=== PATIENT | female | born 1950 | race African-American/Black ===

== ENCOUNTER 2024-08-30 12:30 | Inpatient (IN) | payer MEDICARE, MEDICAID ==
[~2024-08-30] VITALS: Ht 157.5 cm; Wt 79.8 kg
[2024-08-30 13:08] LABS: Urine Bacteria None Seen /hpf (None Seen)
[2024-08-30 13:25] LABS: Urine Blood 3+ /uL (Negative); Urine Clarity Turbid (Clear); Urine Color Yellow (Yellow); Urine Hyaline Cast FEW /lpf (0 - 2); Urine Mucus FEW (None Seen); Urine Protein, UAD 1+ (Negative); Urine Specific Gravity 1.023 (1.001-1.035); Urine Urobilinogen 12 mg/dL (Negative); Urine WBC 76 /hpf (0 - 5)
[2024-08-30 13:52] LABS: Basophils # (auto) 0.1 10 ^3/uL (0-0.2); Neutrophils # (auto) 8.6 10 ^3/uL (1.6-8.6); White Blood Cell 11.2 10^3/uL (4.4-10.8)
[2024-08-30 13:53] LABS: Basophils % (auto) 0.6 % (0.0-2.0); Eosinophils # (auto) 0.1 10 ^3/uL (0-0.8); Eosinophils % (auto) 0.6 % (0.0-7.0); Hematocrit 21.2 % (36.0-46.0); Lymphocytes # (auto) 1.4 10 ^3/uL (0.4-5.4); Lymphocytes % (auto) 12.7 % (10.0-50.0); Mean Corpuscular Hemoglobin 22.9 pg (28.0-32.0); Mean Corpuscular Hgb Conc. 30.2 g/dL (32.0-36.0); Mean Corpuscular Volume 75.7 fL (80.0-100.0); Monocytes # (auto) 1.1 10 ^3/uL (0-1.3); Monocytes % (auto) 9.7 % (0.0-12.0); Neutrophils % (auto) 76.4 % (37.0-80.0); Platelet Count (auto) 659 10^3/uL (140-450); Red Cell Distribution Width 21.1 % (11.8-14.3)
[2024-08-30 13:56] LABS: Hemoglobin 6.4 g/dL (12.2-16.2)
[2024-08-30 14:00] LABS: Chloride 105 mmol/L (98-107); Potassium 3.7 mmol/L (3.5-5.1); Sodium 137 mmol/L (136-145)
[2024-08-30 14:01] LABS: Anion Gap 9 (5-15); Carbon Dioxide 23 mmol/L (20-31)
[2024-08-30 14:06] LABS: BUN/Creatinine Ratio 11.3 (10.0-20.0); Blood Urea Nitrogen 13 mg/dL (9-23); Glucose 170 mg/dL (74-106)
[2024-08-30 14:13] LABS: INR 1.25 (0.9-1.15)
[2024-08-30] MEDS: SODIUM CHLORIDE 0.9% 1,000 ML IV ONE (16:07)
[2024-08-30] MEDS: cefTRIAXone 1GM/50ML D5W 50 ML IV ONE (16:07)
[2024-08-30] MEDS ORDERED: DOCUSATE SOD 100 MG CAP PO PRN (17:00)
[2024-08-30] MEDS ORDERED: HYDROcodone-ACET 5/325MG TAB PO PRN (17:00)
[2024-08-30] MEDS: SODIUM CHLORIDE 0.9% 1,000 ML IV SCH (17:00)
[2024-08-30] MEDS ORDERED: ONDANSETRON HCL 4 MG/2 ML VIAL IV PRN (17:00)
[2024-08-30] MEDS ORDERED: NITROGLYCERIN 0.4 MG SL TAB SL PRN (21:15)
[2024-08-30] MEDS ORDERED: MORPHINE SULFATE INJ 2 MG/ml SYRG IV PRN (21:15)
[2024-08-30 22:15] VITALS: PULSE 86; RESP 18; O2SAT 98
[2024-08-31] VITALS (9 sets, daily range): BP systolic 128–174; BP diastolic 57–71; PULSE 77–96; RESP 16–22; TEMP 98–100.4; O2SAT 96–98
[2024-08-31] MEDS ORDERED: ATEN100T PO (00:59)
[2024-08-31] MEDS ORDERED: ATE50T PO (01:00)
[2024-08-31] MEDS ORDERED: HYDR12.59 PO (01:02)
[2024-08-31] MEDS ORDERED: ATOR40TA52 PO (01:02)
[2024-08-31] MEDS ORDERED: ASPI1TAB20 PO (01:02)
[2024-08-31] MEDS ORDERED: POTA-36 PO (01:03)
[2024-08-31] MEDS ORDERED: IBUP1TAB5 PO (01:04)
[2024-08-31] MEDS ORDERED: FELO10TA28 PO (01:05)
[2024-08-31] MEDS ORDERED: FERR1TAB31 PO (01:12)
[2024-08-31] MEDS ORDERED: ASCO500T11 PO (01:13)
[2024-08-31] MEDS ORDERED: CHOL20007 PO (01:13)
[2024-08-31] MEDS: hydrALAZINE HCL 20 MG/ML VL IV ONE (02:06)
[2024-08-31 05:39] LABS: Basophils # (auto) 0 10 ^3/uL (0-0.2); Basophils % (auto) 0.3 % (0.0-2.0); Mean Corpuscular Hemoglobin 23.1 pg (28.0-32.0)
[2024-08-31 05:41] LABS: Eosinophils # (auto) 0 10 ^3/uL (0-0.8); Eosinophils % (auto) 0.4 % (0.0-7.0); Hematocrit 19.9 % (36.0-46.0); Mean Corpuscular Hgb Conc. 30.7 g/dL (32.0-36.0); Mean Corpuscular Volume 75.5 fL (80.0-100.0); Monocytes % (auto) 9.2 % (0.0-12.0); Neutrophils # (auto) 7.8 10 ^3/uL (1.6-8.6); Neutrophils % (auto) 72.1 % (37.0-80.0); Platelet Count (auto) 595 10^3/uL (140-450); Red Blood Cells 2.63 10^6/uL (4.0-5.20); White Blood Cell 10.8 10^3/uL (4.4-10.8)
[2024-08-31 05:42] LABS: Red Cell Distribution Width 20.7 % (11.8-14.3)
[2024-08-31 05:44] LABS: Hemoglobin 6.1 g/dL (12.2-16.2)
[2024-08-31 06:02] LABS: Albumin 3.6 g/dL (3.2-4.8); Alkaline Phosphatase 80 U/L (46-116); Anion Gap 11 (5-15); Aspartate Aminotransferase < 8 U/L (13-40); BUN/Creatinine Ratio 14.3 (10.0-20.0); Bilirubin, Total 0.7 mg/dL (0.2-1.0); Blood Urea Nitrogen 12 mg/dL (9-23); Calcium 9.6 mg/dL (8.7-10.4); Carbon Dioxide 22 mmol/L (20-31); Chloride 106 mmol/L (98-107); Glucose 171 mg/dL (74-106); Potassium 3.4 mmol/L (3.5-5.1); Sodium 139 mmol/L (136-145)
[2024-08-31 06:03] LABS: Total Protein 7.2 g/dL (5.7-8.2)
[2024-08-31 06:20] LABS: Alanine Aminotransferase < 9 U/L (7-40)
[2024-08-31] MEDS: ACETAMINOPHEN 325 MG TAB PO PRN (06:46)
[2024-08-31] MEDS: cloNIDine HCL 0.1 MG TAB PO ONE (06:49)
[2024-08-31] MEDS: cefTRIAXone 1GM/50ML D5W 50 ML IV SCH (08:36)
[2024-08-31] MEDS: ATENOLOL 25 MG TAB PO ONE (17:14)
[2024-08-31] MEDS: POTASSIUM CHL 20 Meq TABLET PO ONE (17:15)
[2024-08-31] MEDS: FUROSEMIDE 20 MG/2 ML VIAL IV ONE (17:16)
[2024-08-31 18:15] LABS: % Iron Saturation 11.2 % (15-50)
[2024-08-31 18:53] LABS: Folate (Folic Acid) 16.37 ng/mL (>5.38)
[2024-09-01] VITALS (8 sets, daily range): BP systolic 137–163; BP diastolic 49–79; PULSE 79–90; RESP 16–21; TEMP 97.5–100.2; O2SAT 94–99
[2024-09-01 06:57] LABS: Basophils # (auto) 0 10 ^3/uL (0-0.2); Eosinophils # (auto) 0.1 10 ^3/uL (0-0.8); Eosinophils % (auto) 1.2 % (0.0-7.0); Lymphocytes # (auto) 1.4 10 ^3/uL (0.4-5.4); Nucleated Red Blood Cells % 0.1 %
[2024-09-01 06:59] LABS: Basophils % (auto) 0.4 % (0.0-2.0); Hematocrit 18.7 % (36.0-46.0); Lymphocytes % (auto) 17.3 % (10.0-50.0); Mean Corpuscular Hemoglobin 22.5 pg (28.0-32.0); Mean Corpuscular Volume 75.2 fL (80.0-100.0); Neutrophils # (auto) 5.7 10 ^3/uL (1.6-8.6); Neutrophils % (auto) 69.1 % (37.0-80.0); Platelet Count (auto) 505 10^3/uL (140-450); Red Blood Cells 2.49 10^6/uL (4.0-5.20); Red Cell Distribution Width 21.2 % (11.8-14.3); White Blood Cell 8.2 10^3/uL (4.4-10.8)
[2024-09-01 07:20] LABS: Anion Gap 8 (5-15); Carbon Dioxide 25 mmol/L (20-31); Chloride 106 mmol/L (98-107); Potassium 3.7 mmol/L (3.5-5.1); Sodium 139 mmol/L (136-145)
[2024-09-01 07:21] LABS: Hemoglobin 5.6 g/dL (12.2-16.2)
[2024-09-01 07:26] LABS: BUN/Creatinine Ratio 9.2 (10.0-20.0); Blood Urea Nitrogen 7 mg/dL (9-23); Glucose 129 mg/dL (74-106)
[2024-09-01 07:27] LABS: Magnesium 1.7 mg/dL (1.6-2.6)
[2024-09-01] MEDS: FUROSEMIDE 20 MG/2 ML VIAL IV SCH (11:01)
[2024-09-01] MEDS: POTASSIUM CHL 20 Meq TABLET PO SCH (11:01)
[2024-09-01] MEDS: ATENOLOL 25 MG TAB PO SCH (11:02)
[2024-09-01] MEDS: IRON SUCROSE COMPLEX 110 ML IV SCH (12:44)
[2024-09-01] MEDS ORDERED: GADOTERATE MEG 7.5 MMOL/15ml INJ (0.5MMOL/ml) IV ONE (14:41)
[2024-09-01] MEDS: LORazepam 2MG/ML-1ML VIAL IV ONE (14:51)
[2024-09-02 01:00] VITALS: BP 120/76; PULSE 65; RESP 16; TEMP 98.8; O2SAT 98
[2024-09-02 05:00] VITALS: BP 154/57; PULSE 87; RESP 16; TEMP 98.4; O2SAT 95
[2024-09-02 06:27] LABS: Hematocrit 17.9 % (36.0-46.0)
[2024-09-02 06:50] LABS: Hemoglobin 5.4 g/dL (12.2-16.2)
[2024-09-02 08:00] VITALS: PULSE 82; PULSE 91; RESP 18; O2SAT 96
[2024-09-02 08:30] VITALS: BP 153/75; PULSE 80; RESP 18; TEMP 98.1; O2SAT 98
[2024-09-02] MEDS: EPOETIN ALFA-EPBX 10,000 UNIT/1ML VIAL SC ONE (12:27)
== END 2024-09-02 13:35 | disposition left against medical advice (07) | DRG 871 ==
LOC: ER 12:30 → UNDOADMIN 21:12 → TELE 21:12 → TELE-EAST 23:42
PROVIDERS: ADMIT Nurse Practitioner Family; ATTEND Internal Medicine
DX: A41.9 Sepsis, unspecified organism (principal); I50.41 Acute combined systolic (congestive) and diastolic (congestive) heart failure; N39.0 Urinary tract infection, site not specified; C77.9 Secondary and unspecified malignant neoplasm of lymph node, unspecified; C54.1 Malignant neoplasm of endometrium; N93.9 Abnormal uterine and vaginal bleeding, unspecified; D75.839 Thrombocytosis, unspecified; D64.9 Anemia, unspecified; E11.65 Type 2 diabetes mellitus with hyperglycemia; I11.0 Hypertensive heart disease with heart failure; Z53.29 Procedure and treatment not carried out because of patient's decision for other reasons; E66.9 Obesity, unspecified; Z68.32 Body mass index [BMI] 32.0-32.9, adult
CPT/HCPCS: 36415; 72195; 74176; 76830; 76856; 80048; 80053; 81001; 82270; 82607; 82746; 82962; 83036; 83540; 83550; 83735; 84443; 85014; 85018; 85025; 85610; 86850; 86900; 86901; 86920; 87040; 87086; 93306; G0378; J1756